=== PATIENT | female | born 1995 | race Caucasian/White ===

== ENCOUNTER 2020-08-06 01:53 | Observation (INO) | payer BC, MEDICAID ==
[~2020-08-06] VITALS: Ht 4 cm; Wt 68.0 kg
[2020-08-06] MEDS ORDERED: PNV1TABL29 MT (02:21)
[2020-08-06] MEDS ORDERED: PREN-182 PO (02:21)
[2020-08-06] MEDS ORDERED: ACET-2708 PO (02:21)
[2020-08-06] MEDS ORDERED: SODIUM CHLORIDE 0.9% 1,000 ML IV NR (03:00)
[2020-08-06 03:55] LABS: CLARITY URINE CLEAR (CLEAR); COLOR URINE YELLOW (YELLOW); KETONES URINE TRACE (NEGATIVE); LEUKOCYTE ESTERASE URINE NEGATIVE (NEGATIVE); NITRITE URINE NEGATIVE (NEGATIVE); OCCULT BLOOD URINE NEGATIVE (NEGATIVE); PROTEIN URINE NEGATIVE (NEGATIVE); SPECIFIC GRAVITY URINE 1.023 (1.005-1.030)
== END 2020-08-06 04:15 | disposition home or self-care (01) ==
LOC: 8 EST LDRP 01:53
PROVIDERS: ADMIT Specialist; ATTEND Specialist
DX: O26.892 Other specified pregnancy related conditions, second trimester (principal); O99.891 Other specified diseases and conditions complicating pregnancy; M54.5 Low back pain; R10.9 Unspecified abdominal pain; Z3A.22 22 weeks gestation of pregnancy
CPT/HCPCS: 59025; 81002; 81003; 96360; 96361; G0378; 99281